=== PATIENT | female | born 1980 | race Caucasian/White ===

== ENCOUNTER → 2018-12-20 | Outpatient (CLI) | payer OTHER ==
--- NOTE | 2018-12-20 16:01 | KCIC ---
EXAM: Chest, 2 views. HISTORY: Asthma. COMPARISON: None. FINDINGS: 2 views of the chest are obtained. There is right infrahilar atelectasis or interstitial infiltrate. There is no consolidation, pleural effusion or pneumothorax. The heart is normal in size. IMPRESSION: Suspected right infrahilar atelectasis or interstitial infiltrate. Electronically signed by: Malathi Ashton MD (12/20/2018 3:59 PM) [place] [id number]
== END | disposition home or self-care (01) ==
LOC: KCIC 14:37
PROVIDERS: ATTEND Family Medicine
DX: J45.40 Moderate persistent asthma, uncomplicated (principal)
CPT/HCPCS: 71046

== ENCOUNTER → 2018-12-28 | Outpatient (CLI) | payer OTHER ==
--- NOTE | 2018-12-28 14:29 | KCIC ---
EXAM: CT Chest without IV contrast CLINICAL HISTORY: Abnormality on prior chest x-ray, dyspnea. COMPARISON: Chest x-ray 12/20/2018. TECHNIQUE: CT of the chest without intravenous contrast. Axial, coronal and sagittal reformatted images were generated. ---PQRS compliance statement - One or more of the following individualized dose reduction techniques were utilized for this study: 1. Automated exposure control 2. Adjustment of the mA and/or kV according to patient size 3. Use of iterative reconstruction technique--- FINDINGS: Lack of intravenous contrast limits evaluation of solid organs, vasculature, and lymph nodes. Chest: Heart is not enlarged. No pericardial effusion. No pleural effusion or pneumothorax. No mediastinal or hilar lymphadenopathy. No axillary lymphadenopathy. Subpleural opacities in the peripheral right lower lobe are somewhat wedge-shaped with mild groundglass appearance. No suspicious lung nodule. Visualized Upper abdomen: Unremarkable Bones: Degenerative changes of spine are seen. IMPRESSION: Subpleural wedge-shaped opacities in the peripheral right lower lobe may represent consolidative process such as pneumonia, however pulmonary infarcts such as with pulmonary emboli would have similar appearance. Further evaluation with CT angiogram-pulmonary embolus protocol can be performed. Findings were discussed with Dr. Arroyo's office at 2:23 PM 12/28/[address] PE protocol if there is clinical concern for pulmonary embolus. Electronically signed by: Jc Carson MD (12/28/2018 2:26 PM) [facility]
== END | disposition home or self-care (01) ==
LOC: KCIC CT 12:31
PROVIDERS: ATTEND Family Medicine
DX: R93.89 Abnormal findings on diagnostic imaging of other specified body structures (principal); J45.909 Unspecified asthma, uncomplicated
CPT/HCPCS: 71250

== ENCOUNTER → 2019-01-17 | Outpatient (CLI) | payer OTHER ==
[~2019-01-17] MED LIST: ALBU2.5V8 IH; IOHEXOL 300 MG/ML 100ML VIAL. IV ONE; LEVO1TAB6 PO
--- NOTE | 2019-01-17 14:19 | KCIC ---
PQRS Compliance Statement: One or more of the following individualized dose reduction techniques were utilized for this examination: 1. Automated exposure control 2. Adjustment of the mA and/or kV according to patient size 3. Use of iterative reconstruction technique CT CHEST WITH CONTRAST, PULMONARY ANGIOGRAM History: Abnormal chest CT. Comparison: CT chest without contrast December 28, 2018. Technique: Helical CT of the chest was performed after the administration of 100 cc of Omnipaque 300 intravenous contrast according to PE protocol. Axial and coronal reconstructions were obtained. 3-D MIP images were constructed to better evaluate the pulmonary arteries. Findings: Pulmonary arteries are adequately opacified. There are filling defects in basilar right lower lobe pulmonary arteries, for example image 72. No other pulmonary embolus is identified. No right ventricular strain is seen. There is no thoracic aortic dissection. The thyroid is symmetric. There is no adenopathy in the chest. Cardiac size normal, no pericardial effusion. There is small right pleural effusion, new from prior study. The central airways are patent. Wedge-shaped areas of consolidation in the periphery of the basilar right lower lobe are unchanged. Visualized upper abdomen is unremarkable. No acute bone abnormality. IMPRESSION: 1. There is pulmonary embolus in basilar right lower lobe pulmonary arteries. Overall clot burden is mild. 2. Wedge-shaped peripheral consolidations in the basilar right lower lobe are unchanged and may be pulmonary infarcts versus pneumonia. 3. There is new small right pleural effusion. Findings discussed with Dr. Arroyo at 01/17/2019 2:13 PM. FOR INTERNAL CODING PURPOSES Critical result: RESULT CODE: (C) Electronically signed by: Eddie Rivera MD (01/17/2019 2:17 PM) [id number]
== END | disposition home or self-care (01) ==
LOC: KCIC CT 13:10
PROVIDERS: ATTEND Nurse Practitioner Family
DX: I26.99 Other pulmonary embolism without acute cor pulmonale (principal); J90 Pleural effusion, not elsewhere classified; Z88.0 Allergy status to penicillin
CPT/HCPCS: 71275; Q9967